=== PATIENT | female | born 1955 | race Asian ===

== ENCOUNTER 2020-01-10 07:58 | Day surgery (SDC) | payer BC, SELFPAY ==
[2020-01-07 08:17] VITALS: BMI 26.4
--- NOTE | 2020-01-09 12:08 | P.CONAN_ITS ---
Documented by User: Shellie Esparza 01/09/20 12:10 HPI - Anesthesia Eval Consult details Narrative: 64yo F for Colonoscopy PMFSH Past Medical History Medical History (Updated 01/09/20 @ 12:09 by Shellie Esparza) Diabetes mellitus Fatty liver GERD (gastroesophageal reflux disease) Hiatal hernia Hyperlipidemia Hypertension Hypothyroidism Iron deficiency anemia Vitamin B 12 deficiency Surgical History Surgical History (Updated 01/07/20 @ 08:10 by Tatiana Whalen) History of total right knee replacement Hx of arthroscopy of right knee Hx of section Hx of colonoscopy Social History Social History Advance Directives: No Advance Directives Information Provided: No Advance Directives on File: No Meds Allergies Allergy/AdvReac Type Severity Reaction Status Date / Time No Known Allergies Allergy Verified 01/10/20 08:29 Home Medications Medication Instructions Recorded Confirmed Type aspirin [Aspir-81] 81 mg PO DAILY 01/07/20 01/07/20 History empagliflozin [Jardiance] 10 mg PO DAILY 01/07/20 01/07/20 History ferrous sulfate 325 mg PO DAILY 01/07/20 01/07/20 History glimepiride 1 mg PO DAILY 01/07/20 01/07/20 History levothyroxine 37.5 mcg PO DAILY 01/07/20 01/07/20 History losartan-hydrochlorothiazide 1 tab PO DAILY 01/07/20 01/07/20 History wljagrziuaer-xzmr-zvupk acid 1 tab PO DAILY 01/07/20 01/07/20 History [Centrum Women] omeprazole 20 mg PO DAILY 01/07/20 01/07/20 History rosuvastatin 10 mg PO DAILY 01/07/20 01/07/20 History sitagliptin-metformin [Janumet] 1 tab PO DAILY 01/07/20 01/07/20 History Exam Exam Date and Time: January 09, 2020 1208 Height,Weight and Vital Signs: Height 4 ft 9.5 in Weight 56.245 kg Assessment and Plan Assessment Anesthesia Assessment: Chart Reviewed Documented by User: Sugar Gorman 01/10/20 09:21 [facility] Past Medical History Medical History (Updated 01/09/20 @ 12:09 by Shellie Esparza) Diabetes mellitus Fatty liver GERD (gastroesophageal reflux disease) Hiatal hernia Hyperlipidemia Hypertension Hypothyroidism Iron deficiency anemia Vitamin B 12 deficiency Surgical History Surgical History (Updated 01/07/20 @ 08:10 by Tatiana Whalen) History of total right knee replacement Hx of arthroscopy of right knee Hx of section Hx of colonoscopy Social History Social History Advance Directives: No Advance Directives Information Provided: No Advance Directives on File: No Meds Allergies Allergy/AdvReac Type Severity Reaction Status Date / Time No Known Allergies Allergy Verified 01/10/20 08:29 Home Medications Medication Instructions Recorded Confirmed Type aspirin [Aspir-81] 81 mg PO DAILY 01/07/20 01/07/20 History empagliflozin [Jardiance] 10 mg PO DAILY 01/07/20 01/07/20 History ferrous sulfate 325 mg PO DAILY 01/07/20 01/07/20 History glimepiride 1 mg PO DAILY 01/07/20 01/07/20 History levothyroxine 37.5 mcg PO DAILY 01/07/20 01/07/20 History losartan-hydrochlorothiazide 1 tab PO DAILY 01/07/20 01/07/20 History doshawvemkmq-afmn-pxgcu acid 1 tab PO DAILY 01/07/20 01/07/20 History [Centrum Women] omeprazole 20 mg PO DAILY 01/07/20 01/07/20 History rosuvastatin 10 mg PO DAILY 01/07/20 01/07/20 History sitagliptin-metformin [Janumet] 1 tab PO DAILY 01/07/20 01/07/20 History Exam Airway Mallampati Class: II TM Dist: >3cm Neck ROM: Full Heart: RRR Lungs: CTA BL Assessment and Plan Assessment Anesthesia Assessment: Anesthesia Plan Discussed and Chart Reviewed Final Anesthetic Review NPO: Yes (Sip water with meds) ASA Class: II Final Preanesthetic Review: Meds/Allgs Chart Reviewed and Consent Obtained/Reviewed Patient Risk: Intermediate Procedure Risk: Intermediate Anesthetic Plan Anesthetic Plan: MAC: Disposition: Standard PACU
[2020-01-10 08:19] LABS: Glucose, Whole Blood 165 mg/dL (60-115)
[2020-01-10 08:27] VITALS: BP 142/72; PULSE 87; RESP 16; TEMP 36.6; O2SAT 100
[2020-01-10] MEDS: Lactated Ringers 1,000 ML 100 ML IVCONT (08:29)
[2020-01-10 10:18] VITALS: BP 127/68; PULSE 78; RESP 16; TEMP 36.6; O2SAT 98
--- NOTE | 2020-01-10 10:21 | PM.OP ---
Brief Operative Note Date of Service: 01/10/20 Pre-op diagnosis: Screening Post-op diagnosis: other (Diverticulosis, Internal hemorrhoids) Procedure: Colonoscopy to cecum and TI Surgeon: Domenic Murillo Anesthesia: MAC Estimated blood loss (mL): 0 Pathology: none sent Condition: stable Disposition: PACU
[2020-01-10 10:33] VITALS: BP 122/63; PULSE 82; RESP 18; O2SAT 99
[2020-01-10 10:48] VITALS: BP 129/58; PULSE 60; RESP 18; O2SAT 99
--- NOTE | 2020-01-10 10:56 | OP_ITS ---
SURGEON: Domenic Murillo MD INDICATIONS: The patient presents for evaluation of personal history of tubular adenoma of the colon, and need for colorectal cancer screening. Full consent has been obtained from her for this, including risks of bleeding and perforation. PREOPERATIVE DIAGNOSIS: POSTOPERATIVE DIAGNOSIS: Personal history of tubular adenoma of the colon, and need for colorectal cancer screening, mild sigmoid diverticulosis, small internal hemorrhoids. PROCEDURE PERFORMED: Colonoscopy to the cecum and terminal ileum. ESTIMATED BLOOD LOSS: COMPLICATIONS: ANESTHESIA: Monitored anesthesia care. ASSISTANTS: SPECIMENS: PREOPERATIVE DIAGNOSES: Personal history of tubular adenoma of the colon, and need for colorectal cancer screening. DESCRIPTION OF PROCEDURE: The patient was placed in the left lateral decubitus position. The digital rectal exam revealed no abnormalities. The Olympus video pediatric colonoscope was entered into the rectum, advanced to the cecum with the assistance of abdominal pressure. Once in the cecum, I did identify normal-appearing cecal pouch with appendiceal orifice and a normal-appearing ileocecal valve. The terminal ileum was cannulated and appeared normal. Scope was withdrawn back in the colon. The entire cecum and ileocecal valve appeared normal. The scope was slowly withdrawn assessing all mucosal surfaces carefully. Preparation was excellent. I did not visualize any sign of polyps, colitis, nor angiodysplasia. There was a mild amount of sigmoid diverticulosis. In the rectum, scope was retroflexed visualizing minimal internal hemorrhoids, but no other pathology. The rectal mucosa appeared normal. The scope was straightened and withdrawn from the patient. She tolerated the procedure well and was returned to recovery area in stable condition. IMPRESSION: 1. Mild sigmoid diverticulosis. 2. Internal hemorrhoids. PLAN: She will have a repeat colonoscopy in 5 years for further screening and surveillance. I would recommend a 1 year followup for her history of fatty liver and elevated LFTs. Her most recent LFTs were just about within normal limits. MD HEATHER Greco/GIULIANA / [id number]
[2020-01-10 11:03] VITALS: BP 103/52; PULSE 63; RESP 18; O2SAT 99
--- NOTE | 2020-01-10 11:25 | HO.POSTANES ---
Post Anesthesia Evaluation Post Anesthesia Evaluation Vital Signs: Vital Signs Temp Pulse Resp BP Pulse Ox 01/10/20 11:03 97.9 F 63 18 103/52 L 99 01/10/20 10:48 60 18 129/58 L 99 01/10/20 10:33 82 18 122/63 99 01/10/20 10:18 97.9 F 78 16 127/68 98 01/10/20 08:27 97.8 F 87 16 142/72 H 100 Anesthesia: Monitored Mental Status: Awake Pain Control: Satisfactory Nausea/Vomiting: None Hydration: Adequate Anesthesia-Related Issues: No Anes. Related Issues
== END 2020-01-10 11:35 | disposition home or self-care (01) ==
PROVIDERS: PCP Internal Medicine; Visit Provider Internal Medicine
PROC: 0DJD8ZZ Inspection of Lower Intestinal Tract, Via Natural or Artificial Opening Endoscopic (ICD-10-PCS; CPT 45378; principal; 2020-01-10 09:20)
DX: Z12.11 Encounter for screening for malignant neoplasm of colon (principal); K57.30 Diverticulosis of large intestine without perforation or abscess without bleeding; K64.8 Other hemorrhoids; Z86.010 Personal history of colon polyps; E11.9 Type 2 diabetes mellitus without complications; Z79.84 Long term (current) use of oral hypoglycemic drugs
CPT/HCPCS: 45378; 82947

== ENCOUNTER 2022-09-28 08:59 | Outpatient (REF) | payer BC, SELFPAY ==
--- NOTE | ~2022-09-28 | US_ITS ---
EXAMINATION: US COMPLETE ABDOMEN WITH LIVER ELASTOGRAPHY CLINICAL INFORMATION: Elevated liver function tests. COMPARISON: None available. TECHNIQUE: Real-time imaging of the abdominal viscera. Noninvasive ultrasound liver fibrosis assessment is performed using Jeffrey ElastPQ point quantification shear wave elastography (2D-SWE) with a C5-2 MHz transducer. Multiple elastography samples are obtained. FINDINGS: PANCREAS: Normal. The visualized pancreatic head and body are normal in appearance. The remainder of the pancreas is obscured from visualization by the overlying bowel gas. ABDOMINAL AORTA: The proximal, middle, and distal aortic segments are normal in caliber. There are atherosclerotic calcifications. INFERIOR VENA CAVA: Visualized portions are normal. LIVER: The liver demonstrates normal size, contour and increased echogenicity. No focal lesion or intrahepatic biliary duct dilatation. The right lobe measures 15.7 cm in length. The left lobe measures 9.8 cm in length. Portal flow is towards the liver (hepatopetal). Shear wave liver elastography median stiffness is 1.70 m/s (reference: normal median stiffness is 1.3 m/s or less). IQR/median stiffness to assess sampling precision is 0.11 (reference: good quality data set is IQR/median stiffness of 0.15 or less). GALLBLADDER: Normal. The gallbladder is physiologically distended without evidence of stones, sludge, polyps, wall thickening or pericholecystic fluid. COMMON BILE DUCT: Normal in caliber measuring 0.5 cm in diameter. RIGHT KIDNEY: There is mild pelviectasis, without mary hydronephrosis. No renal calculi or focal parenchymal lesions. The kidney measures 10.0 cm in maximum dimension. LEFT KIDNEY: Normal. No hydronephrosis. No renal calculi or focal parenchymal lesions. The kidney measures 9.9 cm in maximum dimension. SPLEEN: Normal. The spleen measures 9.5 cm in maximum dimension. FREE FLUID: None. US/US abdomen comp w elastography IMPRESSION: 1. There is generalized increase in hepatic echotexture, consistent with fatty infiltration or hepatocellular disease. Please correlate clinically. Characteristic pericholecystic sparing favors fatty infiltration. No focal hepatic mass or intrahepatic biliary dilatation is seen. 2. Liver elastography: Measurements are suggestive of compensated advanced chronic liver disease but need further test for confirmation. REFERENCE: Society of Radiologists in Ultrasound Liver Stiffness Thresholds (2020): LIVER STIFFNESS THRESHOLDS: *Liver Stiffness equal or less than 1.3 m/s: High probability of being normal. *Liver Stiffness less than 1.7 m/s: In the absence of other known clinical signs, rules out compensated advanced chronic liver disease. *Liver Stiffness 1.7-2.1 m/s: Suggestive of compensated advanced chronic liver disease but need further test for confirmation. *Liver Stiffness over 2.1 m/s: Rules in compensated advanced chronic liver disease. *Liver Stiffness over 2.4 m/s: Suggestive of clinically significant portal hypertension. QUALITY OF DATA SET: *IQR/Median value equal or less than 0.15 implies a quality data set. *IQR/Median value over 0.15 implies a poor quality data set. SIGNIFICANT CHANGE FROM PRIOR EXAM: Significant change if liver stiffness measurement is 10% or greater from prior exam. OTHER CONSIDERATIONS: The stage of liver fibrosis may be overestimated in the setting of acute hepatitis, liver inflammation, elevated liver function tests, hepatic vascular congestion, obstructive cholestasis, non-fasting state, and infiltrative diseases such as amyloidosis and lymphoma. In some patients with NAFLD, the liver stiffness thresholds for compensated advanced chronic liver disease may be lower. In causes other than viral hepatitis and NAFLD, liver stiffness thresholds are not well established.
== END 2022-09-28 09:00 | disposition home or self-care (01) ==
LOC: HO.US 08:59
PROVIDERS: PCP Internal Medicine; Visit Provider Internal Medicine
DX: K76.0 Fatty (change of) liver, not elsewhere classified (principal); R79.89 Other specified abnormal findings of blood chemistry
CPT/HCPCS: 76705; 76981

== ENCOUNTER 2023-11-10 08:57 | Outpatient (REF) | payer MEDICARE, SELFPAY ==
--- NOTE | ~2023-11-10 | US_ITS ---
EXAMINATION: US COMPLETE ABDOMEN WITH LIVER ELASTOGRAPHY CLINICAL INFORMATION: Fatty liver with elevated LFT's. COMPARISON: Ultrasound of the abdomen 09/28/2022. TECHNIQUE: Real-time imaging of the abdominal viscera. Noninvasive ultrasound liver fibrosis assessment is performed using Jeffrey ElastPQ point quantification shear wave elastography (pSWE) with a C5-2 MHz transducer. Multiple elastography samples are obtained. FINDINGS: PANCREAS: Normal. The visualized pancreatic head and body are normal in appearance. The remainder of the pancreas is obscured from visualization by the overlying bowel gas. ABDOMINAL AORTA: The proximal, middle, and distal aortic segments are normal in caliber. INFERIOR VENA CAVA: Visualized portions are normal. LIVER: The liver demonstrates normal size and contour, but with increased echogenicity, consistent with hepatic steatosis. There is a 1.9 cm brightly echogenic mass seen in the right lobe of the liver, with ultrasound appearances consistent with a cavernous hemangioma. This was not identified previously. No other focal lesion or intrahepatic biliary duct dilatation. The right lobe measures 16 cm in length. The left lobe measures 11.2 cm in length. Portal flow is towards the liver (hepatopetal). Shear wave liver elastography median stiffness is 1.67 m/s (reference: normal median stiffness is 1.3 m/s or less). IQR/median stiffness to assess sampling precision is 0.17 (reference: good quality data set is IQR/median stiffness of 0.15 or less). GALLBLADDER: The gallbladder is physiologically distended without evidence of stones, sludge, polyps, wall thickening or pericholecystic fluid. COMMON BILE DUCT: Normal in caliber measuring 0.4 cm in diameter. RIGHT KIDNEY: No hydronephrosis. No renal calculi or focal parenchymal lesions. The kidney measures 10.2 cm in maximum dimension. LEFT KIDNEY: No hydronephrosis. No renal calculi or focal parenchymal lesions. The kidney measures 11.3 cm in maximum dimension. SPLEEN: Normal. The spleen measures 9.2 cm in maximum dimension. FREE FLUID: None. US/US abdomen comp w elastography IMPRESSION: 1. Echogenic fatty liver with a question of a hemangioma. As this was not seen on any prior imaging, MRI could be performed for confirmation. 2. Liver elastography: Although measurements are suggestive of compensated advanced chronic liver disease, there is statistical variability of the sampling which decreases accuracy. REFERENCE: Society of Radiologists in Ultrasound Liver Stiffness Thresholds (2020): LIVER STIFFNESS THRESHOLDS: *Liver Stiffness equal or less than 1.3 m/s: High probability of being normal. *Liver Stiffness less than 1.7 m/s: In the absence of other known clinical signs, rules out compensated advanced chronic liver disease. *Liver Stiffness 1.7-2.1 m/s: Suggestive of compensated advanced chronic liver disease but need further test for confirmation. *Liver Stiffness over 2.1 m/s: Rules in compensated advanced chronic liver disease. *Liver Stiffness over 2.4 m/s: Suggestive of clinically significant portal hypertension. QUALITY OF DATA SET: *IQR/Median value equal or less than 0.15 implies a quality data set. *IQR/Median value over 0.15 implies a poor quality data set. SIGNIFICANT CHANGE FROM PRIOR EXAM: Significant change if liver stiffness measurement is 10% or greater from prior exam. OTHER CONSIDERATIONS: The stage of liver fibrosis may be overestimated in the setting of acute hepatitis, liver inflammation, elevated liver function tests, hepatic vascular congestion, obstructive cholestasis, non-fasting state, and infiltrative diseases such as amyloidosis and lymphoma. In some patients with NAFLD, the liver stiffness thresholds for compensated advanced chronic liver disease may be lower. In causes other than viral hepatitis and NAFLD, liver stiffness thresholds are not well established. Electronically signed by: Wilbert Tobias MD 01/11/2024 10:57 PM [facility]
== END 2023-11-10 08:58 | disposition home or self-care (01) ==
LOC: HO.US 08:57
PROVIDERS: PCP Internal Medicine; Visit Provider Internal Medicine
DX: K76.0 Fatty (change of) liver, not elsewhere classified (principal); R94.5 Abnormal results of liver function studies
CPT/HCPCS: 76700; 76981

== ENCOUNTER 2024-04-03 16:11 | Outpatient (REF) | payer MEDICARE, SELFPAY ==
--- NOTE | ~2024-04-03 | XR_ITS ---
EXAMINATION: XR FOOT, RIGHT CLINICAL INFORMATION: RT FOOT PAIN COMPARISON: None available. TECHNIQUE: AP, lateral, and oblique views of the right foot. FINDINGS: There is a cortical irregularity at the proximal phalanx of the third toe. There is osteopenia versus osteoporosis. The metatarsals are intact. The tarsal bones are intact. The calcaneus and tarsal bone are intact. Degenerative changes in the interphalangeal joints of the first toe. The phalanges of the first, second, fourth and fifth toes are intact. XR/XR foot RT min 3V IMPRESSION: Nondisplaced fracture proximal phalanx, third toe. A message be a [employer] connect to the requesting physician placed on April 04, 2024] 8:23 AM. Electronically signed by: Cordell Kelley MD 04/04/2024 08:23 AM PATSY FIGUEREDO
--- OUTSIDE RECORDS SUMMARY | 2024-04-03 19:36 | XMS_ITS ---
Author Organization [facility] Address [address] [place] [address] Care Team Providers Care Check Examiner Name Role Phone Erin Alvarado Primary Care Provider Unavailab Domenic Olmstead Unavailable [phone] REASON FOR VISIT ELEVATED LIVER FUNCTIONS Encounters Encounter Location Date Provider Diagnosis [facility] [address] [place] [address] [address] [place] [address] 12/19/2023 Domenic Murillo PLAN OF TREATMENT Next Appt Details Provider Name:Domenic Murillo , 12/19/2024 09:40:00 AM, [address] [place] [address], [address], [place], [address],
--- OUTSIDE RECORDS SUMMARY | 2024-04-03 19:36 | XMS_ITS | Patient Health Record ---
Author Organization [facility] Address [address] [place] [address] Care Team Providers Care Wallpaper Printer Name Role Phone Erin Alvarado Primary Care Provider Unavailab Domenic Olmstead [phone] ALLERGIES No Known Allergies RESULTS Component Value Reference Range Notes US abdomen comp w elastograp hy (Not yet reviewed by provider) Interpretation: Performing Lab: Notes/Report: [address] [address] Ultrasound Report Signed Patient: Jack Rausch MR#: [id number] 1 : 1955 Acct:[id number] Age/Sex: 68 / F ADM Date: 11/10/23 Loc: HO.US Attending Dr: Domenic Murillo MD Ordering Physician: Domenic Murillo MD Date of Service: 11/10/23 Procedure(s): US abdomen comp w elastography Accession Number(s): [id number] cc: Erin Alvarado MD; Domenic Murillo MD EXAMINATION: US COMPLETE ABDOMEN WITH LIVER ELASTOGRAPHY CLINICAL INFORMATION: Fatty liver with elevated LFT's. COMPARISON: Ultrasound of the abdomen 09/28/2022. TECHNIQUE: Real-time imaging of the abdominal viscera. Noninvasive ultrasound liver fibrosis assessment is performed using Shawarmanji ElastPQ point quantification shear wave elastography (pSWE) with a C5-2 MHz transducer. Multiple elastography samples are obtained. FINDINGS: PANCREAS: Normal. The visualized pancreatic head and body are normal in appearance. The remainder of the pancreas is obscured from visualization by the overlying bowel gas. ABDOMINAL AORTA: The proximal, middle, and distal aortic segments are normal in caliber. INFERIOR VENA CAVA: Visualized portions are normal. LIVER: The liver demonstrates normal size and contour, but with increased echogenicity, consistent with hepatic steatosis. There is a 1.9 cm brightly echogenic mass seen in the right lobe of the liver, with ultrasound appearances consistent with a cavernous hemangioma. This was not identified previously. No other focal lesion or intrahepatic biliary duct dilatation. The right lobe measures 16 cm in length. The left lobe measures 11.2 cm in length. Portal flow is towards the liver (hepatopetal). Shear wave liver elastography median stiffness is 1.67 m/s (reference: normal median stiffness is 1.3 m/s or less). IQR/median stiffness to assess sampling precision is 0.17 (reference: good quality data set is IQR/median stiffness of 0.15 or less). GALLBLADDER: The gallbladder is physiologically distended without evidence of stones, sludge, polyps, wall thickening or pericholecystic fluid. COMMON BILE DUCT: Normal in caliber measuring 0.4 cm in diameter. RIGHT KIDNEY: No hydronephrosis. No renal calculi or focal parenchymal lesions. The kidney measures 10.2 cm in maximum dimension. LEFT KIDNEY: No hydronephrosis. No renal calculi or focal parenchymal lesions. The kidney measures 11.3 cm in maximum dimension. SPLEEN: Normal. The spleen measures 9.2 cm in maximum dimension. FREE FLUID: None. US/US abdomen comp w elastography IMPRESSION: 1. Echogenic fatty liver with a question of a hemangioma. As this was not seen on any prior imaging, MRI could be performed for confirmation. 2. Liver elastography: Although measurements are suggestive of compensated advanced chronic liver disease, there is statistical variability of the sampling which decreases accuracy. REFERENCE: Society of Radiologists in Ultrasound Liver Stiffness Thresholds (2020): LIVER STIFFNESS THRESHOLDS: *Liver Stiffness equal or less than 1.3 m/s: High probability of being normal. *Liver Stiffness less than 1.7 m/s: In the absence of other known clinical signs, rules out compensated advanced chronic liver disease. *Liver Stiffness 1.7-2.1 m/s: Suggestive of compensated advanced chronic liver disease but need further test for confirmation. *Liver Stiffness over 2.1 m/s: Rules in compensated advanced chronic liver disease. *Liver Stiffness over 2.4 m/s: Suggestive of clinically significant portal hypertension. QUALITY OF DATA SET: *IQR/Median value equal or less than 0.15 implies a quality data set. *IQR/Median value over 0.15 implies a poor quality data set. SIGNIFICANT CHANGE FROM PRIOR EXAM: Significant change if liver stiffness measurement is 10% or greater from prior exam. OTHER CONSIDERATIONS: The stage of liver fibrosis may be overestimated in the setting of acute hepatitis, liver inflammation, elevated liver function tests, hepatic vascular congestion, obstructive cholestasis, non-fasting state, and infiltrative diseases such as amyloidosis and lymphoma. In some patients with NAFLD, the liver stiffness thresholds for compensated advanced chronic liver disease may be lower. In causes other than viral hepatitis and NAFLD, liver stiffness thresholds are not well established. Electronically signed by: Wilbert Tobias MD 01/11/2024 10:57 PM [facility] [place] Dictated By: Wilbert Tobias MD Signed By: <Electronically signed by Wilbert Tobias MD in OV> 01/11/24 2257 DD/ 8 TD/TT: 11/10/23926 Application Defense Manager: SS REASON FOR REFERRAL No Information MEDICATIONS Medication SIG (Take, Route, Frequency, Duration) Notes Start Date End Date Status Nitroglycerin 0.4 MG Sublingual for 30 prn Not-Taking Aspir-Low 81 MG 1 tablet Orally ever y other day Active Rosuvastatin Calcium 10 MG 1 tablet Oral ly Once a day for 30 day(s) Active Omeprazole 20 MG 1 capsule 30 minutes before morning meal Orally Once a day Active Losartan Potassium-HCTZ 50-12.5 MG 1 tablet Orally Once a day Active Glimepiride 1 MG 1 tablet with breakfast or the first main meal of the day Orally Once a day Active Levothyroxine Sodium 75 MCG 1/2 tablet Orally 1/2 tabket every day Active Centrum Women - as directed Orally Active Jardiance 10 MG 1 tablet Orally Once a day for 30 day(s) Active Janumet 50-1000 MG 1 tablet with meals Orally once a day Active Ferrous Sulfate 325 (65 Fe) MG 1 tablet Orally Once a day Active IMMUNIZATIONS Vaccine Route Administration Date Status Comme nts Influenza Unknown 11/06/2018 Administered Influenza Unknown 11/07/2019 Administered Influenza Unknown 12/16/2020 Administered Influenza Unknown 12/28/2021 Administered SOCIAL HISTORY Sex Assigned At : Social History Observation Description Sex Assigned At Unknown Alcohol Screen Question Answer Notes Did you have a drink contain ing alcohol in the past year? Yes How often did you have a dri nk containing alcohol in the past year? Monthly or less (1 point) How many drinks did you have on a typical day when you were drinking in the past year? 1 or 2 drinks (0 point) How often did you have 6 or more drinks on one occasion in the past year? Never (0 point) Points 1 Interpretation Negative PROBLEMS Problem Type ICD Code Onset Dates Problem Status W/U Status Risk SNOMED Code Notes Problem Gastro-esophagea l reflux disease without esophagitis (K21.9) Active confirmed 396629430 Problem Encounter for screening for malignant neoplasm of colon (Z12.11) Active confirmed 945109534 Problem History of adenomatous polyp of colon (Z86.010) Active confirmed 040545887 Problem Personal history of colonic polyps (Z86.010) Active confirmed History of polyp of colon (511147011) Problem Elevated LFTs (R79.89) Active confirmed Elevated liver enzymes level (217827062) Problem Elevated liver function tests (R79.89) Active confirmed 297834046 Problem Elevated liver enzymes (R74.8) Active confirmed 624007021 Problem Fatty liver (K76.0) Active confirmed 715235327 Problem Elevated liver function tests (R94.5) Active confirmed 807260804 VITAL SIGNS Blood pressure diastolic 00 mm Hg 12/19/2023 Height 57.5 in 12/19/2023 Blood pressure systolic 00 mm Hg 12/19/2023 Weight 120 lbs 12/19/2023 BMI 25.52 kg/m2 12/19/2023 Encounters Encounter Location Date Provider Diagnosis [facility] [address] [place] [address] 12/19/2023 Domenic Murillo [facility] [address] [place] [address] 04/02/2024 Domenic Murillo [facility] [address] [place] [address] 12/19/2023 Domenic Murillo History of adenomato us polyp of colon Z86.010 ; Fatty liver K76.0 ; Encounter for screening for malignant neoplasm of colon Z12.11 and Elevated liver function tests R94.5 [facility] [address] [place] [address] 08/08/2023 Domenic Murillo Fatty liver K76.0 an d Elevated liver function tests R94.5 [facility] [address] [place] [address] 10/26/2023 Domenic Murillo [facility] [address] [place] [address] 12/19/2023 Domenic Murillo ASSESSMENTS Encounter Date Diagnosis Assessment Notes Treatment Notes Treatment Clinical Notes 12/19/2023 History of adenomatous polyp of colon (ICD-10 - Z86.010) We will schedule your colonoscopy when I see you at the end of 202412/19/2023 Fatty liver (ICD-10 - K76.0) 08/08/2023 Fatty liver (ICD-10 - K76.0) 08/08/2023 Elevated liver function tests (ICD-10 - R94.5) 12/19/2023 Encounter for screening for malignant neoplasm of colon (ICD-10 - Z12.11) 12/19/2023 Elevated liver function tests (ICD-10 - R94.5) PLAN OF TREATMENT Pending Test Test Name Order Date LIVER PROFILE 03/30/2019 LIVER PROFILE 06/04/2019 LIVER PROFILE 02/26/2019 LIVER PROFILE 01/06/2022 LIVER PROFILE 06/27/2019 LIVER PROFILE 08/08/2023 LIVER PROFILE 11/28/2019 LIVER PROFILE 01/06/2021 CBC w DIFF 01/06/2022 CBC w DIFF 08/08/2023 PROTHROMBIN TIME (PT, INR) 02/26/2019 PROTHROMBIN TIME (PT, INR) 01/06/2022 [id number] (A1A) 02/26/2019 ALPHA-FETOPROTEIN,TUMOR MARKER ALPHA-FETOPROTEIN,TUMOR MARKER 2 MITOCHONDRIAL AB 02/26/2019 SMOOTH MUSCLE ANTIBODIES 02/26/2019 FLUOR. ANTINUCLEAR AB SCREEN (RAJNI) 02/07 US ABDOMEN COMP WITH ELASTOGRAPHY 2021 Prothrombin Time INR 08/08/2023 Liver Fibrosis Pnl 01/06/2022 Liver Fibrosis Pnl 08/08/2023 US abdomen comp w elastography 4 US abdomen comp w elastography 4 Future Test Test Name Order Date COLONOSCOPY 12/25/2014 COLONOSCOPY 11/28/2019 Next Appt Details Provider Name:Domenic Murillo , 12/19/2024 09:40:00 AM, [address], [address], [place], [address], Insurance Providers Payer Name Payer Address Payer Phone Subscriber Number Group Number Insured Name Patient Relationship to Insured Coverage Start Date Coverage End Date [facility] [address] [place] [address] [phone] [id number] JACK RAUSCH Self - patient is the insured MEDICAL (GENERAL) HISTORY Medical History History ICD Code GERD and a moderate sized hi atal hernia--upper endoscopy in 2005 revealed esophagitis, but followup endoscopies in 2006 and 2009 were negative for esophagitis--she has done well on omeprazole--previous biopsies were negative for Antonio's esophagus and celiac disease(she had been aneimc) Tubular adenoma removed in , and a colonoscopy in 2009 was negative for polyps history of iron deficiency anemia history of B12 deficiency--neg. intrinsi c factor Denies AR,CVA,Lung disease,renal disease non insulin dependent diabetes mellitus Hyperlipidemia GERD with erosive esophagitis and large hiatal hernia Hypothyroidism Colonocopy 03/2015 hyperplastic/inflammat ory polyps Fatty liver with elevated LF Ts-negative hepatitis B and C studies in 2018, low to normal ferritin levels; neg. liver w/u in 2019 Negative colonoscopy in 01/2020 Surgical History Surgery Date(Month/Year) x 2 Right knee arthroscopy Right knee replacement 11/2015
--- OUTSIDE RECORDS SUMMARY | 2024-04-03 19:36 | XMS_ITS ---
Author Organization [facility] Address [address] [place] [address] Care Team Providers Care Civil Engineering Technician Name Role Phone Erin Alvarado Primary Care Provider Unavailab Domenic Olmstead Unavailable [phone] REASON FOR VISIT labs Encounters Encounter Location Date Provider Diagnosis [facility] [address] [place] [address] [address] [place] [address] 12/19/2023 Domenic Murillo PLAN OF TREATMENT Next Appt Details Provider Name:Domenic Murillo , 12/19/2024 09:40:00 AM, [address] [place] [address], [address], [place], [address],
--- OUTSIDE RECORDS SUMMARY | 2024-04-03 19:37 | XMS_ITS ---
Author Organization [facility] Address [address] [place] [address] Care Team Providers Care Dictionary Editor Name Role Phone Erin Alvarado Primary Care Provider Unavailab Domenic Olmstead Unavailable [phone] REASON FOR VISIT ELEVATED LIVER FUNCTIONS Encounters Encounter Location Date Provider Diagnosis [facility] [address] [place] [address] [address] [place] [address] 04/02/2024 Domenic Murillo PLAN OF TREATMENT Next Appt Details Provider Name:Domenic uMrillo , 12/19/2024 09:40:00 AM, [address] [place] [address], [address], [place], [address],
== END 2024-04-03 16:12 | disposition home or self-care (01) ==
LOC: HO.XRAY 16:11
PROVIDERS: PCP Internal Medicine; Visit Provider Internal Medicine
DX: M79.671 Pain in right foot (principal)
CPT/HCPCS: 73630

== ENCOUNTER → 2024-04-03 16:23 | Outpatient (BNV) | payer MEDICARE, SELFPAY | PROVIDERS: PCP Internal Medicine; Visit Provider Radiology Diagnostic Radiology | DX: S92.514A Nondisplaced fracture of proximal phalanx of right lesser toe(s), initial encounter for closed fracture (principal) | CPT/HCPCS: 73630 ==